=== PATIENT | female | born 1950 | race Asian ===

== ENCOUNTER 2018-07-10 21:01 | Emergency (ER) | payer SELFPAY ==
[2018-07-10 21:10] VITALS: BP 166/99
[2018-07-10] MEDS ORDERED: DOXYcycline CAP(*) 100 MG PO ONE (21:32)
--- NOTE | 2018-07-10 21:33 | UC ---
Bite Injury/Animal HPI - HPI Summary HPI Summary: 68-year-old woman with a chief complaint of a tick attached to the left side of her chest. Patient was out working in the garden a couple of days ago and then this evening she noticed a tick. She did not remove it. There is some redness around the insertion of the tick otherwise she feels well no fevers. - History of Current Complaint Chief Complaint: [place] Stated Complaint: TICK Time Seen by Provider: 07/10/18 21:24 Pain Intensity: 0 - Allergies/Home Medications Allergies/Adverse Reactions: Allergies Allergy/AdvReac Type Severity Reaction Status Date / Time No Known Allergies Allergy Verified 07/10/18 21:10 Home Medications: Home Medications NK [No Home Medications Reported] 07/10/18 [History Confirmed 07/10/18] PMH/Surg Hx/FS Hx/Imm Hx Previously Healthy: Yes - Surgical History Surgical History: Yes Surgery Procedure, Year, and Place: cervical spine surgery - Family History Known Family History: Positive: Non-Contributory - Social History Alcohol Use: None Substance Use Type: None Smoking Status (MU): Never Smoked Tobacco Review of Systems All Other Systems Reviewed And Are Negative: Yes Constitutional: Positive: Negative Skin: Positive: Other - SEE HPI Eyes: Positive: Negative ENT: Positive: Negative Respiratory: Positive: Negative Cardiovascular: Positive: Negative Gastrointestinal: Positive: Negative Motor: Positive: Negative Neurovascular: Positive: Negative Musculoskeletal: Positive: Negative Neurological: Positive: Negative Psychological: Positive: Negative Is Patient Immunocompromised?: No Physical Exam Triage Information Reviewed: Yes Appearance: Well-Appearing, No Pain Distress, Well-Nourished Vital Signs: Initial Vital Signs Temp 97.3 F 07/10/18 21:06 Pulse 74 07/10/18 21:06 Resp 16 07/10/18 21:06 BP 166/99 07/10/18 21:06 Pulse Ox 98 07/10/18 21:06 Vital Signs Reviewed: Yes Eye Exam: Normal Eyes: Positive: Conjunctiva Clear Neck: Positive: Supple Respiratory: Positive: No respiratory distress Cardiovascular: Positive: RRR Musculoskeletal Exam: Normal Musculoskeletal: Positive: Strength Intact, ROM Intact Neurological Exam: Normal Neurological: Positive: Alert, Muscle Tone Normal Psychological Exam: Normal Psychological: Positive: Normal Response To Family, Age Appropriate Behavior Skin: Positive: Other - TICK LEFT CHEST WITH 1CM ERYTHEMA AT SITE. NO BULLS EYE RASH. TICK REMOVED WITH TICK TWISTER. Bite Injury Course/Dx - Differential Dx/Diagnosis Provider Diagnosis: Tick bite of chest wall Discharge - Sign-Out/Discharge Documenting (check all that apply): Patient Departure All imaging exams completed and their final reports reviewed: No Studies - Discharge Plan Condition: Stable Disposition: HOME Patient Education Materials: Tick Bite (ED) Referrals: [facility] [Outside] Additional Instructions: FOLLOW UP WITH YOUR DOCTOR IF NOT COMPLETELY IMPROVED. GET REEVALUATED SOONER FOR ANY WORSENING OF YOUR CONDITION; THE RASH GETS BIGGER , FEVER, YOU FEEL ILL OR ANY QUESTIONS OR CONCERNS. - Billing Disposition and Condition Condition: STABLE Disposition: Home
== END 2018-07-10 21:45 | disposition home or self-care (01) ==
LOC: UCEAST 21:01
DX: S20.362A Insect bite (nonvenomous) of left front wall of thorax, initial encounter (principal); W57.XXXA Bitten or stung by nonvenomous insect and other nonvenomous arthropods, initial encounter; Y93.H2 Activity, gardening and landscaping; Y92.096 Garden or yard of other non-institutional residence as the place of occurrence of the external cause
CPT/HCPCS: 99212; A9270-GY; G0463